=== PATIENT | female | born 1985 | race African-American/Black ===

== ENCOUNTER 2018-09-03 19:45 | Emergency (ER) | payer BC ==
[~2018-09-03] VITALS: Ht 165.1 cm; Wt 73.9 kg
[2018-09-03 20:17] VITALS: BP 146/72
[2018-09-03] MEDS ORDERED: FLUORESCEIN OPHTH TEST STRIP. OS ONE (21:00)
[2018-09-03] MEDS ORDERED: PROPARACAINE/FLUORESCEIN 0.5 ML OPHTH DROPS. OS ONE (21:00)
[2018-09-03] MEDS ORDERED: TETRACAINE 0.5% OPHTH SOLUTION 4ML BOTTLE. OS ONE (21:00)
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
[2018-09-03 21:08] LABS: BILIRUBIN,URINE NEGATIVE (NEG); CLARITY,URINE CLEAR; COLOR,URINE YELLOW; NITRITE,URINE NEGATIVE (NEG); PROTEIN,URINE NEGATIVE (NEG-TRACE); UROBILINOGEN,URINE 0.2 mg/dL (0.2 mg/dL)
[2018-09-03 21:13] LABS: BACTERIA,URINE MODERATE /HPF (0-FEW); RBC,URINE 0 /HPF (0-2); SQUAMOUS EPITHELIAL CELL,UR MOD /LPF
[2018-09-03] MEDS ORDERED: TETRACAINE 0.5% OPHTH SOLUTION 4ML BOTTLE. ONE (21:31)
== END 2018-09-03 22:02 | disposition home or self-care (01) ==
LOC: ER 19:45
DX: L24.9 Irritant contact dermatitis, unspecified cause (principal)
CPT/HCPCS: 81001; 81025; 87086; 99283

== ENCOUNTER 2018-11-03 11:11 | Emergency (ER) | payer OTHER ==
[~2018-11-03] VITALS: Ht 162.6 cm; Wt 77.1 kg
[2018-11-03 11:48] VITALS: BP 135/70
[2018-11-03] MEDS ORDERED: HYDROcodone/APAP 5/325MG 1 TAB TABLET PO ONE (12:45)
[2018-11-03] MEDS ORDERED: tiZANidine 4 MG TABLET. PO ONE (12:45)
[2018-11-03] MEDS ORDERED: HYDR-3164 PO (13:01)
[2018-11-03] MEDS ORDERED: ORPH100T PO (13:01)
[2018-11-03] MEDS ORDERED: IBUP-1007 PO (13:01)
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
== END 2018-11-03 13:48 | disposition home or self-care (01) ==
LOC: ER 11:11
DX: S00.83XA Contusion of other part of head, initial encounter (principal); M54.2 Cervicalgia; M25.512 Pain in left shoulder; Z98.890 Other specified postprocedural states; V43.52XA Car driver injured in collision with other type car in traffic accident, initial encounter; Y93.89 Activity, other specified; Y92.410 Unspecified street and highway as the place of occurrence of the external cause; Y99.8 Other external cause status
CPT/HCPCS: 70450; 72125; 99284

== ENCOUNTER 2019-09-18 08:49 | Emergency (ER) | payer BC ==
[~2019-09-18] VITALS: Ht 167.6 cm; Wt 86.2 kg
[~2019-09-18 08:49] MED LIST: HYDR-3164 PO; IBUP-1007 PO; ORPH100T PO
[2019-09-18] MEDS ORDERED: LIDOCAINE/EPI/TETRACAINE TOPICAL GEL 3 ML. TP STA (09:32)
[2019-09-18] MEDS ORDERED: DEXAMETHASONE 4 MG TABLET PO STA (09:46)
--- NOTE | 2019-09-18 09:49 | PHYS DOC ---
Past Medical History Past Medical History: No Pertinent History Past Surgical History: Alcohol Use: None Drug Use: None Adult General Chief Complaint Chief Complaint: SORE THROAT HPI HPI Patient is a 34 year old female who presents with sore throat, body aches, runny nose, congestion, cough this been ongoing for 2 days. Patient did state she has had her flu shot in May. Review of Systems Review of Systems Constitutional: Reports fever or chills [] Eyes: Denies change in visual acuity, redness, or eye pain [] HENT: Reports nasal congestion, runny nose, and sore throat [] Respiratory: Reports cough. Cardiovascular: No additional information not addressed in HPI [] GI: Denies abdominal pain, nausea, vomiting, bloody stools or diarrhea [] : Denies dysuria or hematuria [] Musculoskeletal: Denies back pain or joint pain [] Integument: Denies rash or skin lesions [] Neurologic: Reports headache, denies focal weakness or sensory changes [] Endocrine: Denies polyuria or polydipsia [] Complete systems were reviewed and found to be within normal limits, except as documented in this note. Current Medications Current Medications Current Medications Medications (Trade) Dose Ordered Sig/Aiden Start Time Stop Time Status Last Admin Dose Admin Dexamethasone (Decadron) 10 mg 1X STAT 09/18/19 09:46 09/18/19 09:50 DC 09/18/19 10:07 10 MG Tetracaine/ Epinephrine/ Lidocaine (Let (Fciw-Sgeveie-Zfczs) Gel) 3 ml 1X STAT 09/18/19 09:32 09/18/19 09:34 DC Allergies Allergies Allergies Coded Allergies Type Severity Reaction Last Updated Verified No Known Drug Allergies 03/07/14 No Physical Exam Physical Exam Constitutional: Well developed, well nourished, no acute distress, non-toxic appearance. [] HENT: Normocephalic, atraumatic, bilateral external ears normal, bilateral tympanic membranes are pearly banuelos, oropharynx moist, no oral exudates, nose turbinates are red.] Eyes: PERRLA, EOMI, conjunctiva normal, no discharge. [] Neck: Normal range of motion, no tenderness, supple, no stridor. [] Cardiovascular:Heart rate regular rhythm, no murmur [] Lungs & Thorax: Bilateral breath sounds clear to auscultation [] Skin: Warm, dry, no erythema, no rash. [] Neurologic: Alert and oriented X 3, normal motor function, normal sensory function, no focal deficits noted. [] Psychologic: Affect normal, judgement normal, mood normal. [] Current Patient Data Vital Signs Vital Signs Date Time Temp Pulse Resp B/P (MAP) Pulse Ox O2 Delivery O2 Flow Rate FiO2 09/18/19 10:03 98.7 100 16 169/96 (120) 98 Room Air 98.7 Lab Values Laboratory Tests Test 09/18/19 09:21 Influenza Type A Antigen Negative (NEGATIVE) Influenza Type B Antigen Negative (NEGATIVE) EKG EKG [] Radiology/Procedures Radiology/Procedures [] Course & Med Decision Making Course & Med Decision Making Pertinent Labs and Imaging studies reviewed. (See chart for details) Will order Flu test and give Decadron. Flu is negative. Will prescribe Zofran, Tessalon Perles and recommend Zyrtec over the counter. Dragon Disclaimer Dragon Disclaimer This electronic medical record was generated, in whole or in part, using a voice recognition dictation system. Departure Departure Impression: Primary Impression: Acute viral syndrome Disposition: HOME, SELF-CARE Condition: STABLE Referrals: JHONY RIOS MD (PCP) Patient Instructions: Viral Syndrome Additional Instructions: Thank you for visiting [facility]. We appreciate you trusting us with your care. If any additional problems come up don't hesitate to return to visit us. Please follow up with your primary care provider so they can plan additional care if needed and know about the problem that you had. If symptoms worsen come back to the Emergency Department. Any concerning symptoms that start such as chest pain, shortness of air, weakness or numbness on one side of the body, running high fevers or any other concerning symptoms return to the ER. Please take Zyrtec over the counter per label instructions. Please fill your medications at any pharmacy and follow the prescription instructions. Scripts Ondansetron (ONDANSETRON ODT) 4 Mg Tab.rapdis 1 TAB PO PRN Q6-8HRS PRN for NAUSEA, #16 TAB Prov: ALFREDO GILBERT APRN 09/18/19 Benzonatate (TESSALON PERLE) 100 Mg Capsule 100 MG PO TID PRN for COUGH, #21 CAP Prov: ALFREDO GILBERT APRN 09/18/19 ALFREDO GILBERT APRN Sep 18, 2019 09:49
[2019-09-18 10:03] VITALS: BP 169/96
[2019-09-18 10:21] LABS: INFLUENZA A PATIENT NEGATIVE (NEGATIVE); INFLUENZA B PATIENT NEGATIVE (NEGATIVE)
[2019-09-18] MEDS ORDERED: BENZ100C PO (10:46)
[2019-09-18] MEDS ORDERED: ONDA4TAB12 PO (10:46)
== END 2019-09-18 11:03 | disposition home or self-care (01) ==
LOC: ER 08:49
DX: B34.9 Viral infection, unspecified (principal); R05 Cough; R51 Headache; R09.81 Nasal congestion; R09.89 Other specified symptoms and signs involving the circulatory and respiratory systems; Z98.890 Other specified postprocedural states
CPT/HCPCS: 87804; 99284; J8540

== ENCOUNTER 2020-04-21 21:22 | Emergency (ER) | payer BC ==
[~2020-04-21] VITALS: Ht 165.1 cm; Wt 81.0 kg
[~2020-04-21 21:22] MED LIST changes: +BENZ100C PO; +ONDA4TAB12 PO
--- NOTE | 2020-04-21 21:52 | PHYS DOC ---
Past Medical History Past Medical History: No Pertinent History Past Surgical History: Smoking Status: Former Smoker Alcohol Use: Occasionally Drug Use: None General Adult EDM: Chief Complaint: VAGINAL BLEEDING HPI: HPI: Patient is a 34 year old female who presents with a chief complaint of vaginal spotting and lower abdominal moderate cramping that radiates to the back. Patient's last menstrual period was on 03/17. Symptoms began today. Patient denies any other symptoms. No dizziness or vomiting or diarrhea. No urinary tract symptoms. Patient is a G5, P2 Review of Systems: Review of Systems: Constitutional: Denies fever or chills. [] Eyes: Denies change in visual acuity. [] HENT: Denies nasal congestion or sore throat. [] Respiratory: Denies cough or shortness of breath. [] Cardiovascular: Denies chest pain or edema. [] GI: Denies nausea, vomiting, bloody stools or diarrhea. [Complains of lower abdominal cramping] : Denies dysuria. [Complains of light vaginal bleeding] Musculoskeletal: Complains of low back pain Integument: Denies rash. [] Neurologic: Denies headache, focal weakness or sensory changes. [] Endocrine: Denies polyuria or polydipsia. [] Lymphatic: Denies swollen glands. [] Psychiatric: Denies depression or anxiety. [] Heart Score: Risk Factors: Risk Factors: DM, Current or recent (<one month) smoker, HTN, HLP, family history of CAD, obesity. Risk Scores: Score 0 - 3: 2.5% MACE over next 6 weeks - Discharge Home Score 4 - 6: 20.3% MACE over next 6 weeks - Admit for Clinical Observation Score 7 - 10: 72.7% MACE over next 6 weeks - Early Invasive Strategies Allergies: Allergies: Allergies Coded Allergies Type Severity Reaction Last Updated Verified No Known Drug Allergies 03/07/14 No Physical Exam: PE: Constitutional: Well developed, well nourished, no acute distress, non-toxic appearance. [] HENT: Normocephalic, atraumatic, bilateral external ears normal, no trismus nose normal. [] Eyes: PERRLA, EOMI, conjunctiva normal, no discharge. [] Neck: Normal range of motion, no tenderness, supple, no stridor. [] Cardiovascular:Heart rate regular rhythm, Lungs & Thorax: No respiratory distress Abdomen: soft, no tenderness, no masses, no pulsatile masses. [] Skin: Warm, dry, no erythema, no rash. [] Back: No tenderness, no CVA tenderness. [] Extremities: No tenderness, no cyanosis, no clubbing, ROM intact, no edema. [] Neurologic: Alert and oriented X 3, normal motor function, normal sensory function, no focal deficits noted. [] Psychologic: Affect normal, judgement normal, mood normal. [] Current Patient Data: Labs: Laboratory Tests Test 04/21/20 21:34 04/21/20 22:05 Bedside Urine HCG, Qualitative Hcg positive White Blood Count 9.0 x10^3/uL Red Blood Count 4.26 x10^6/uL Hemoglobin 12.8 g/dL Hematocrit 37.4 % Mean Corpuscular Volume 88 fL Mean Corpuscular Hemoglobin 30 pg Mean Corpuscular Hemoglobin Concent 34 g/dL Red Cell Distribution Width 16.3 % Platelet Count 245 x10^3/uL Neutrophils (%) (Auto) 63 % Lymphocytes (%) (Auto) 25 % Monocytes (%) (Auto) 10 % Eosinophils (%) (Auto) 1 % Basophils (%) (Auto) 1 % Neutrophils # (Auto) 5.7 x10^3/uL Lymphocytes # (Auto) 2.3 x10^3/uL Monocytes # (Auto) 0.9 x10^3/uL Eosinophils # (Auto) 0.1 x10^3/uL Basophils # (Auto) 0.1 x10^3/uL Maternal Serum HCG Beta Subunit 64035 mIU/mL Sodium Level 138 mmol/L Potassium Level 3.4 mmol/L Chloride Level 104 mmol/L Carbon Dioxide Level 22 mmol/L Anion Gap 12 Blood Urea Nitrogen 10 mg/dL Creatinine 1.0 mg/dL Estimated GFR (Cockcroft-Gault) 77.7 BUN/Creatinine Ratio 10 Glucose Level 78 mg/dL Calcium Level 8.2 mg/dL Total Bilirubin 0.5 mg/dL Aspartate Amino Transf (AST/SGOT) 23 U/L Alanine Aminotransferase (ALT/SGPT) 26 U/L Alkaline Phosphatase 65 U/L Total Protein 6.9 g/dL Albumin 3.4 g/dL Albumin/Globulin Ratio 1.0 Laboratory Tests Test 04/21/20 21:34 POC Urine HCG, Qualitative Hcg positive (Negative) Vital Signs: Vital Signs Date Time Temp Pulse Resp B/P (MAP) Pulse Ox O2 Delivery O2 Flow Rate FiO2 04/21/20 21:38 98.6 80 15 126/67 (86) 100 Room Air 98.6 EKG: EKG: [] Radiology/Procedures: Radiology/Procedures: [][facility] [address] [place] [address] IMAGING REPORT Signed PATIENT: GISELA VALDEZ AACCOUNT: [id number] : 1985 LOCATION: ER AGE: 34 SEX: F EXAM STATUS: REG ER ORD. PHYSICIAN: KIRK CAGLE MD REASON: vag bleed, lmp PROCEDURE: OB TRANSVAG EXAM: First Trimester OB Ultrasound INDICATION: Reason: vag bleed, lmp / Spl. Instructions: / History: TECHNIQUE: Real-time first trimester obstetrical ultrasound was performed with permanent freeze-frame documentation. Endovaginal imaging was performed. COMPARISON: None. FINDINGS: GESTATIONAL SAC: Gestational sac shape and amniotic fluid volume within normal limits. Small subchorionic hemorrhage is identified adjacent to the gestational sac. POLE: Not seen yolk sac not visualized. CROWN RUMP LENGTH: Not applicable HEART RATE: Not applicable PLACENTA: Too early to adequately assess. MATERNAL UTERUS: Unremarkable. MATERNAL ADNEXA: Unremarkable. AGE/DATES: Gestational Age by LMP: 5 weeks 0 days Gestational Age by US: 5 weeks 5 days EDC by LMP: December 22, 2020 EDC by US: December 17, 2020 IMPRESSION: First trimester OB ultrasound without a discernible pole or yolk sac. This may be too early to assess. Close follow-up recommended, including serial hCG measurements. Estimated gestational age of 5 weeks 5 days and EDC of December 17, 2020. Small subphrenic hemorrhage is also identified.. Electronically signed by: Samantha Phillips MD (04/22/2020 12:51 AM) [facility] [place] DICTATED and SIGNED BY: SAMANTHA PHILLIPS MD DATE: 04/22/20 0051 Course & Med Decision Making: Course & Med Decision Making Pertinent Labs and Imaging studies reviewed. (See chart for details) [] 34-year-old female presents with vaginal spotting and pelvic pain worse right greater than left. Patient has a positive test with a quantitative hCG in the 11,000 range. Ultrasound does not show a yolk sac or pole. Patient does have a gestational sac. Patient is Rh+. I discussed the case with who agrees the patient should have 2-day follow-up. I di scussed the case with the patient that I have not ruled out ectopic and she needs a mandatory follow-up in 2 days. I told her to return if concerns or vaginal bleeding worsens or increased pain or dizziness or lightheadedness. Patient vocalized understanding. Dragon Disclaimer: Dragon Disclaimer: This electronic medical record was generated, in whole or in part, using a voice recognition dictation system. Departure Departure Impression: Primary Impression: Threatened Additional Impression: Vaginal bleeding Disposition: HOME, SELF-CARE Condition: STABLE Referrals: JHONY RIOS MD (PCP) ROYA LONDONO MD mandatory follow up in 2 days Patient Instructions: Threatened Miscarriage Additional Instructions: EMERGENCY DEPARTMENT GENERAL DISCHARGE INSTRUCTIONS Thank you for coming to [facility] Emergency Department (ED) today and trusting us with you care. We trust that you had a positivie experience in our Emergency Department. If you wish to speak to the department management, you may call the sirector at [phone]. YOUR FOLLOW UP INSTRUCTIONS ARE FOLLOWS: 1. Do you have a private Doctor? If you do not have a private doctir, please ask for a resource list of physicians or clinics that may be able to assist you with follow up care. 2. The Emergency Physicain has interpreted your x-rays. The X-Ray specialist will also review them. If there is a change in the findingd, you will be notified in 48 hours when at all possible. 3. A lab test or culture has been done, your results will be reviewed and you will be notified if you need a change in treatment. ADDITIONAL INSTRUCTIONS AND INFORMATION: 1. Your care today has been supervised by a physician who is specially trained in emergency care. Many problems require more than one evaluation for a complete diagnosis and treatment. We recommend that you schedule your follow up appointment as recommended to ensure complete treatment of you illness or injury. If you are unable to obtain follow up care and continue to have a problem, or if your consition worsens, we recommend that you return to the ED. 2. We are not able to safelymdetermine your condition over the phone nor are we able to give sound medical advice over the phone. For these safety reasons, if you call for medical advice we will ask you to come to the ED for further evaluation. 3. If you have any questions regarding these discharge instructions please call the ED at [phone]. SAFETY INFORMATION: In the interest of safety, wellness, and injury prevention; we encourage you to wear your sealbelt, if you smoke; quite smoking, and we encourage family to use a prote ctive helmet for bicycling and other sporting events that present an increased risk for head injusry. IF YOUR SYMPTOMS WORSEN OR NEW SYMPTOMS DEVELOP, OR YOU HAVE CONCERNS ABOUT YOUR CONDITION; OR IF YOUR CONDITION WORSENS WHILE YOU ARE WAITING FOR YOUR FOLLOW UP APPOINTMENT; EITHER CONTACT YOUR PRIMARY CARE DOCTOR, THE PHYSICIAN WHOSE NAME AND NUMBER YOU WERE GIVEN, OR RETURN TO THE ED IMMEDIATELY. you need to follow up with ob or here in 2 days. return if concerns, vomiting, increased pain, bleeding, dizziness, lightheadedness Justicifation of Admission Dx: Justifications for Admission: Justification of Admission Dx: N/A KIRK CAGLE MD Apr 21, 2020 21:52
[2020-04-21 22:15] LABS: BASO # 0.1 x10^3/uL (0.0-0.2); BASO % 1 % (0-3); EOS # 0.1 x10^3/uL (0.0-0.7); EOS % 1 % (0-3); HEMATOCRIT 37.4 % (36.0-47.0); HEMOGLOBIN 12.8 g/dL (12.0-15.5); LYMPH # 2.3 x10^3/uL (1.0-4.8); LYMPH % 25 % (24-48); MEAN CORPUSCULAR HEMOGLOBIN 30 pg (25-35); MEAN CORPUSCULAR HGB CONC 34 g/dL (31-37); MEAN CORPUSCULAR VOLUME 88 fL (79-100); MONO # 0.9 x10^3/uL (0.0-1.1); MONO % 10 % (0-9); NEUT # 5.7 x10^3/uL (1.8-7.7); NEUT % 63 % (31-73); PLATELET COUNT 245 x10^3/uL (140-400); RED BLOOD COUNT 4.26 x10^6/uL (3.50-5.40); RED CELL DISTRIBUTION WIDTH 16.3 % (11.5-14.5)
[2020-04-21 22:25] LABS: CALCIUM 8.2 mg/dL (8.5-10.1); GFR 77.7; POTASSIUM 3.4 mmol/L (3.5-5.1)
[2020-04-21 22:31] LABS: ALBUMIN 3.4 g/dL (3.4-5.0); TOTAL BILIRUBIN 0.5 mg/dL (0.2-1.0); TOTAL PROTEIN 6.9 g/dL (6.4-8.2)
--- NOTE | 2020-04-22 00:54 | RAD ---
EXAM: First Trimester OB Ultrasound INDICATION: Reason: vag bleed, lmp / Spl. Instructions: / History: TECHNIQUE: Real-time first trimester obstetrical ultrasound was performed with permanent freeze-frame documentation. Endovaginal imaging was performed. COMPARISON: None. FINDINGS: GESTATIONAL SAC: Gestational sac shape and amniotic fluid volume within normal limits. Small subchorionic hemorrhage is identified adjacent to the gestational sac. POLE: Not seen yolk sac not visualized. CROWN RUMP LENGTH: Not applicable HEART RATE: Not applicable PLACENTA: Too early to adequately assess. MATERNAL UTERUS: Unremarkable. MATERNAL ADNEXA: Unremarkable. AGE/DATES: Gestational Age by LMP: 5 weeks 0 days Gestational Age by US: 5 weeks 5 days EDC by LMP: December 22, 2020 EDC by US: December 17, 2020 IMPRESSION: First trimester OB ultrasound without a discernible pole or yolk sac. This may be too early to assess. Close follow-up recommended, including serial hCG measurements. Estimated gestational age of 5 weeks 5 days and EDC of December 17, 2020. Small subphrenic hemorrhage is also identified.. Electronically signed by: Rao Phillips MD (04/22/2020 12:51 AM) [facility] [place]
[2020-04-22 01:56] VITALS: BP 118/75
== END 2020-04-22 02:01 | disposition home or self-care (01) ==
LOC: ER 21:22
DX: O20.0 Threatened abortion (principal); R10.30 Lower abdominal pain, unspecified; M54.5 Low back pain; Z98.890 Other specified postprocedural states; Z87.891 Personal history of nicotine dependence; Z3A.01 Less than 8 weeks gestation of pregnancy
CPT/HCPCS: 36415; 76817; 80053; 81025; 84702; 85025; 86901; 99285

== ENCOUNTER 2021-04-01 01:38 | Emergency (ER) | payer BC ==
[~2021-04-01] VITALS: Ht 162.6 cm; Wt 86.0 kg
[2021-04-01 01:47] VITALS: BP 129/72
[2021-04-01 02:23] LABS: BILIRUBIN,URINE NEGATIVE (NEG); CLARITY,URINE CLEAR; COLOR,URINE YELLOW; NITRITE,URINE NEGATIVE (NEG); PH,URINE 5.5 (<5.0-8.0); PROTEIN,URINE NEGATIVE (NEG-TRACE)
[2021-04-01 02:31] LABS: BACTERIA,URINE FEW /HPF (0-FEW); RBC,URINE RARE /HPF (0-2)
--- NOTE | 2021-04-01 03:14 | PHYS DOC ---
Past Medical History Past Medical History: No Pertinent History Past Surgical History: Smoking Status: Former Smoker Alcohol Use: Occasionally Drug Use: None General Adult EDM: Chief Complaint: ABDOMINAL PAIN IN HPI: HPI: Patient is a 35 year old male who present to ER due to vaginal spotting and lower abdominal cramping. Patient states she about 5 to 6 weeks , her last menstrual period was on February 13, 2021, she had been 7 times, had 4 miscarriages and 2 live births. Patient says see tripped and fell on her belly yesterday at work. Since he has been some abdominal cramping and vaginal spotting. Patient denies any cough or fever Review of Systems: Review of Systems: Constitutional: Denies fever or chills. [] Eyes: Denies change in visual acuity. [] HENT: Denies nasal congestion or sore throat. [] Respiratory: Denies cough or shortness of breath. [] Cardiovascular: Denies chest pain or edema. [] GI: Positive for abdominal pain, vaginal spotting : Denies dysuria. [] Musculoskeletal: Denies back pain or joint pain. [] Integument: Denies rash. [] Neurologic: Denies headache, focal weakness or sensory changes. [] Endocrine: Denies polyuria or polydipsia. [] Lymphatic: Denies swollen glands. [] Psychiatric: Denies depression or anxiety. [] Heart Score: C/O Chest Pain: N/A Risk Factors: Risk Factors: DM, Current or recent (<one month) smoker, HTN, HLP, family history of CAD, obesity. Risk Scores: Score 0 - 3: 2.5% MACE over next 6 weeks - Discharge Home Score 4 - 6: 20.3% MACE over next 6 weeks - Admit for Clinical Observation Score 7 - 10: 72.7% MACE over next 6 weeks - Early Invasive Strategies Allergies: Allergies: Allergies Coded Allergies Type Severity Reaction Last Updated Verified No Known Drug Allergies 03/07/14 No Physical Exam: PE: Constitutional: Well developed, well nourished, no acute distress, non-toxic appearance. [] HENT: Normocephalic, atraumatic, bilateral external ears normal, oropharynx moist, no oral exudates, nose normal. [] Eyes: PERRLA, EOMI, conjunctiva normal, no discharge. [] Neck: Normal range of motion, no tenderness, supple, no stridor. [] Cardiovascular:Heart rate regular rhythm, no murmur [] Lungs & Thorax: Bilateral breath sounds clear to auscultation [] Abdomen: Bowel sounds normal, soft, no tenderness, no masses, no pulsatile masses. [] Skin: Warm, dry, no erythema, no rash. [] Back: No tenderness, no CVA tenderness. [] Extremities: No tenderness, no cyanosis, no clubbing, ROM intact, no edema. [] Neurologic: Alert and oriented X 3, normal motor function, normal sensory function, no focal deficits noted. [] Psychologic: Affect normal, judgement normal, mood normal. [] Current Patient Data: Labs: Laboratory Tests Test 04/01/21 02:15 04/01/21 02:18 Urine Collection Type Unknown Urine Color Yellow Urine Clarity Clear Urine pH 5.5 (<5.0-8.0) Urine Specific [place] 1.025 (1.000-1.030) Urine Protein Negative mg/dL (NEG-TRACE) Urine Glucose (UA) Negative mg/dL (NEG) Urine Ketones (Stick) Negative mg/dL (NEG) Urine Blood Small (NEG) Urine Nitrite Negative (NEG) Urine Bilirubin Negative (NEG) Urine Urobilinogen Dipstick 1.0 mg/dL (0.2 mg/dL) Urine Leukocyte Esterase Negative (NEG) Urine RBC Rare /HPF (0-2) Urine WBC 1-4 /HPF (0-4) Urine Squamous Epithelial Cells Many /LPF Urine Bacteria Few /HPF (0-FEW) Urine Mucus Marked /LPF POC Urine HCG, Qualitative Hcg positive (Negative) Vital Signs: Vital Signs Date Time Temp Pulse Resp B/P (MAP) Pulse Ox O2 Delivery O2 Flow Rate FiO2 04/01/21 01:47 98.2 82 18 129/72 (91) 99 Room Air 98.2 EKG: EKG: [] Radiology/Procedures: Radiology/Procedures: [][facility] [address] [place] [address] IMAGING REPORT Signed PATIENT: GISELA VALDEZ AACCOUNT: [id number] : 1985 LOCATION: ER AGE: 35 SEX: F EXAM STATUS: REG ER ORD. PHYSICIAN: BEA TERRELL DO REASON: vaginal spotting, pelvic pain, , LMP 02/13/21 PROCEDURE: OB TRANSVAG US OB TRANSVAGINAL DATE: 04/01/2021 3:13 AM INDICATION: vaginal spotting, pelvic pain, , LMP 02/13/21 COMPARISON: None. TECHNIQUE: Transabdominal and transvaginal ultrasonography of the pelvis was performed. Color Doppler and duplex were utilized as appropriate. FINDINGS: The uterus measures 10 x 6.1 x 5.4 cm. Twin intrauterine gestation with 2 gestational sacs and 2 yolk sacs are identified. No pole seen. Gestational sac A has mean sac diameter of 0.96 cm, which corresponds to 5 weeks 5 days gestation. Gestational sac B has mean sac diameter of 1.57 cm, which corresponds to 6 weeks 3 days gestation. Gestational sacs are normal in morphology. No perigestational fluid. There is no free pelvic fluid. The right ovary measures 2.3 x 2.0 x 2.0 cm. The left ovary measures 3.3 x 2.9 x 2.1 cm. No evidence of ovarian torsion. There is normal blood flow to both ovaries by color Doppler with arterial and venous waveforms detected. IMPRESSION: Two intrauterine gestational sacs with measurements corresponding to 5 weeks 5 days gestation and 6 weeks 3 days gestation. No pole is seen, which may relate to very early stage of . Recommend short-term follow-up ultrasound and correlation with hCG. Electronically signed by: Batsheva Snyder MD (04/01/2021 4:17 AM) [facility] DICTATED and SIGNED BY: BATSHEVA SNYDER MD DATE: 04/01/21 [id number] 0 Course & Med Decision Making: Course & Med Decision Making Pertinent Labs and Imaging studies reviewed. (See chart for details) Patient is a 34-year-old female who presented to ER due to pelvic cramping, vaginal spotting after she fell yesterday. Her vital signs were stable, no active vaginal bleeding in the ER, pelvic ultrasound showed 2 IUP with no poles. Patient blood type O+, she has an TEMPORARY OFFICE ASSISTANT at [facility], she will call her TEMPORARY OFFICE ASSISTANT today for follow-up. Ajit Disclaimer: Ajit Disclaimer: This electronic medical record was generated, in whole or in part, using a voice recognition dictation system. Departure Departure Impression: Primary Impression: Threatened in first trimester Disposition: 01 HOME / SELF CARE / HOMELESS Condition: STABLE Referrals: JHONY RIOS MD (PCP) Please follow up with your TEMPORARY OFFICE ASSISTANT DOCTOR IN 1-2 WEEKS FOR REPEAT PELVIC ULTRASOUND. Patient Instructions: Threatened Miscarriage Additional Instructions: Thank you for visiting our Emergency Department. We appreciate you trusting us with your care. If any additional problems come up don't hesitate to return to visit us. Please follow up with your primary care provider so they can plan additional care if needed and know about the problem that you had. If symptoms worsen come back to the Emergency Department. Any concerning symptoms that start such as chest pain, shortness of air, weakness or numbness on one side of the body, running high fevers or any other concerning symptoms return to the ER. BEA TERRELL DO Apr 01, 2021 03:14
[2021-04-01 03:43] LABS: BASO # 0.1 x10^3/uL (0.0-0.2); BASO % 1 % (0-3); EOS # 0.1 x10^3/uL (0.0-0.7); EOS % 2 % (0-3); HEMATOCRIT 37.3 % (36.0-47.0); HEMOGLOBIN 12.8 g/dL (12.0-15.5); LYMPH # 2.1 x10^3/uL (1.0-4.8); LYMPH % 30 % (24-48); MEAN CORPUSCULAR HEMOGLOBIN 30 pg (25-35); MEAN CORPUSCULAR HGB CONC 34 g/dL (31-37); MEAN CORPUSCULAR VOLUME 89 fL (79-100); MONO # 0.7 x10^3/uL (0.0-1.1); MONO % 11 % (0-9); NEUT # 3.9 x10^3/uL (1.8-7.7); NEUT % 56 % (31-73); PLATELET COUNT 256 x10^3/uL (140-400); RED BLOOD COUNT 4.21 x10^6/uL (3.50-5.40); RED CELL DISTRIBUTION WIDTH 14.6 % (11.5-14.5); WHITE BLOOD COUNT 6.9 x10^3/uL (4.0-11.0)
[2021-04-01 04:05] LABS: CALCIUM 8.7 mg/dL (8.5-10.1); CREATININE 0.8 mg/dL (0.6-1.0); POTASSIUM 3.8 mmol/L (3.5-5.1)
[2021-04-01 04:11] LABS: ALBUMIN 3.5 g/dL (3.4-5.0); ALBUMIN/GLOBULIN RATIO 1.2 (1.0-1.7); TOTAL BILIRUBIN 0.1 mg/dL (0.2-1.0); TOTAL PROTEIN 6.5 g/dL (6.4-8.2)
--- NOTE | 2021-04-01 04:20 | RAD ---
US OB TRANSVAGINAL DATE: 04/01/2021 3:13 AM INDICATION: vaginal spotting, pelvic pain, , LMP 02/13/21 COMPARISON: None. TECHNIQUE: Transabdominal and transvaginal ultrasonography of the pelvis was performed. Color Doppler and duplex were utilized as appropriate. FINDINGS: The uterus measures 10 x 6.1 x 5.4 cm. Twin intrauterine gestation with 2 gestational sacs and 2 yolk sacs are identified. No pole see n. Gestational sac A has mean sac diameter of 0.96 cm, which corresponds to 5 weeks 5 days gestation. Gestational sac B has mean sac diameter of 1.57 cm, which corresponds to 6 weeks 3 days gestation. Gestational sacs are normal in morphology. No perigestational fluid. There is no free pelvic fluid. The right ovary measures 2.3 x 2.0 x 2.0 cm. The left ovary measures 3.3 x 2.9 x 2.1 cm. No evidence of ovarian torsion. There is normal blood flow to both ovaries by color Doppler with arterial and harley ous waveforms detected. IMPRESSION: Two intrauterine gestational sacs with measurements corresponding to 5 weeks 5 days gestation and 6 w eeks 3 days gestation. No pole is seen, which may relate to very early stage of . Ayush mmend short-term follow-up ultrasound and correlation with hCG. Electronically signed by: Roshan Snyder MD (04/01/2021 4:17 AM) [facility]
== END 2021-04-01 05:15 | disposition home or self-care (01) ==
LOC: ER 01:38
DX: O20.0 Threatened abortion (principal); Z3A.01 Less than 8 weeks gestation of pregnancy; Z87.891 Personal history of nicotine dependence
CPT/HCPCS: 36415; 76817; 80053; 81001; 81025; 83735; 84702; 85025; 86900; 86901; 99284-25